=== PATIENT | female | born 1980 | race Caucasian/White ===

== ENCOUNTER 2017-01-11 18:25 | Emergency (ER) | payer BC ==
[~2017-01-11] VITALS: Ht 157.5 cm; Wt 49.9 kg
--- NOTE | 2017-01-11 18:39 | NUR ---
PT REC'D TO ER C/O ABD FOR 1 HOUR SHARP UPPER QUAD. HAS HX OF ULCERS . TOOK A PEPCID BEFORE SHE CAME TO THE ER. PAIN 03/18 , [facility] SENT TO [facility] BY ER PROVIDER.
--- NOTE | 2017-01-11 18:56 | NUR ---
IV STARTED 20G RT AC LABS DRAWN SENT TO LAB IV FLUIDS GIVEN PER MD ORDER
[2017-01-11 18:58] LABS: BASOPHILS # (AUTO) 0.2 /CMM (0.0-0.2); BASOPHILS % (AUTO) 2.9 % (0.0-2.0); EOSINOPHILS # (AUTO) 0.1 /CMM (0.0-0.7); EOSINOPHILS % (AUTO) 1.3 % (0.0-6.0); HEMATOCRIT 36 % (33-45); HEMOGLOBIN 12.1 g/dL (11.5-14.8); LYMPHOCYTES % (AUTO) 30.1 % (20.0-44.0); MEAN CORPUSCULAR HEMOGLOBIN 31 PG (26.0-33.0); MEAN CORPUSCULAR HGB CONC 34 g/dl (31.0-36.0); MEAN CORPUSCULAR VOLUME 91 fL (82-100); MONOCYTES # (AUTO) 0.6 /CMM (0.1-1.30); MONOCYTES % (AUTO) 8.4 % (2.0-12.0); NEUTROPHILS # (AUTO) 3.7 /CMM (1.8-8.9); NEUTROPHILS % (AUTO) 57.3 % (43.0-81.0); PLATELET COUNT (AUTO) 301 /CMM (150-450); RDW COEFFICIENT OF VARIATION 11.9 (11.5-15.0); RED BLOOD CELL COUNT(AUTO) 3.94 MIL/uL (4.0-5.2); WHITE BLOOD COUNT (AUTO) 6.6 K/uL (4.3-11.0)
[2017-01-11 19:00] LABS: APPEARANCE,URINE Clear (CLEAR); BILIRUBIN,URINE Negative (NEGATIVE); BLOOD, URINE Moderate Ery/uL (NEGATIVE); COLOR,URINE Yellow (YELLOW); KETONES,URINE Negative (NEGATIVE); LEUKOCYTE ESTERASE ,URINE Negative (NEGATIVE); NITRITE, URINE Negative (NEGATIVE); PREGNANCY TEST URINE QUAL NEGATIVE (NEGATIVE); PROTEIN,URINE Negative (NEGATIVE); UGLUCOSE Negative (NEGATIVE); UROBILINOGEN,URINE 0.2 EU/dL (0.2)
[2017-01-11] MEDS ORDERED: ONDANSETRON HCL/PF 4 MG/2 ML VIAL IVP ONE (19:00)
[2017-01-11] MEDS ORDERED: MORPHINE SULFATE INJ 2 MG/ML DISP.SYRIN IV ONE (19:00)
[2017-01-11] MEDS ORDERED: PANTOPRAZOLE 40 MG VIAL IV ONE (19:00)
[2017-01-11] MEDS ORDERED: IV NS 0.9% 1,000 ML BAG IV ONE (19:00)
--- NOTE | 2017-01-11 19:00 | NUR ---
MAUREEN TROYVNE PER MD ORDER AWAITING EVALUATION BY ER PROVIDER.
[2017-01-11] MEDS ORDERED: ONDANSETRON HCL/PF 4 MG/2 ML VIAL ONE (19:01)
[2017-01-11] MEDS ORDERED: MORPHINE SULFATE INJ 4 MG/ML DISP.SYRIN ONE (19:02)
[2017-01-11] MEDS ORDERED: PANTOPRAZOLE 40 MG VIAL ONE (19:02)
--- NOTE | 2017-01-11 19:10 | NUR ---
REPORT GIVEN TO PM SHIFT
[2017-01-11 19:20] LABS: BILIRUBIN,TOTAL 0.2 mg/dL (0.2-1.0); CALCIUM, SERUM 8.7 mg/dL (8.5-10.1); CREATININE 0.7 mg/dL (0.6-1.3); POTASSIUM 3.9 mmol/L (3.5-5.1); TOTAL PROTEIN, SERUM 7.1 g/dL (6.4-8.2)
[2017-01-11 19:24] LABS: BACTERIA,URINE Moderate /HPF (None Seen); SQUAMOUS EPITHELIAL CELL,UR Moderate /HPF (None Seen); WBC,URINE 0-2 /HPF (0-3)
--- NOTE | 2017-01-11 19:26 | NUR ---
FOLLOWED UP WITH RADIOLOGY FOR ULTRASOUND, US TECH IS ON THE WAY
--- NOTE | 2017-01-11 19:39 | NUR ---
ONGOING ULTRASOUND AT BEDSIDE.
--- NOTE | 2017-01-11 20:53 | NUR ---
PATIENT TAKEN TO CT.
--- NOTE | 2017-01-11 21:05 | NUR ---
PATIENT BACK FROM CT.
--- NOTE | 2017-01-11 22:21 | NUR ---
IV removed. Catheter intact and site benign. Pressure and 4x4 applied to site. No bleeding noted. Patient discharged to home in stable condition. Written and verbal after care instructions given. Patient verbalizes understanding of instruction. Patient is ambulatory with steady gait, no further complaints.
[2017-01-11] MEDS ORDERED: TRAMADOL HCL 50 MG TABLET ONE (22:23)
[2017-01-11 22:27] VITALS: BP 110/62
[2017-01-11] MEDS ORDERED: TRAMADOL HCL 50 MG TABLET PO ONE (22:30)
== END 2017-01-11 22:27 | disposition home or self-care (01) ==
LOC: ER 18:26
DX: K27.3 Acute peptic ulcer, site unspecified, without hemorrhage or perforation (principal); R31.29 Other microscopic hematuria; K21.9 Gastro-esophageal reflux disease without esophagitis; Z87.11 Personal history of peptic ulcer disease; Z88.0 Allergy status to penicillin
CPT/HCPCS: 36415; 72128-TC; 76705-TC; 80048-TC; 80076-TC; 81000-TC; 83605-TC; 83690-TC; 84703-TC; 85025-TC; 87086-TC; A4606; C9113; J2270; J2405; J7030; Z7610

== ENCOUNTER 2017-06-13 23:57 | Emergency (ER) | payer BC ==
[~2017-06-13] VITALS: Ht 154.9 cm; Wt 48.1 kg
--- NOTE | 2017-06-14 01:50 | NUR ---
PT BIB FAMILY, PT A/OX4 BREATHING EFFORTLESSLY ON ROOM AIR, PT STATES SHE STARTED HVAING VERYBAD NAUSEA WITH DIARRHEA 24 HOURS AGO, PT DENEIS VOMITING, URINE COLLECTED AND SENT TO LAB, IV PLACED LABS DRAWN, PT ON MONITOR, PT FAMILY AT BEDSIDE MD MADE AWARE WILL CONTINUE TO MONITOR.
[2017-06-14 01:54] LABS: BILIRUBIN,URINE NEGATIVE (NEGATIVE); BLOOD, URINE 3+ Ery/uL (NEGATIVE); COLOR,URINE YELLOW (YELLOW); KETONES,URINE 2+ (NEGATIVE); LEUKOCYTE ESTERASE ,URINE NEGATIVE (NEGATIVE); NITRITE, URINE NEGATIVE (NEGATIVE); PROTEIN,URINE NEGATIVE (NEGATIVE); UGLUCOSE NEGATIVE (NEGATIVE); UROBILINOGEN,URINE 0.2 EU/dL (0.2)
[2017-06-14 01:55] LABS: APPEARANCE,URINE HAZY (CLEAR)
[2017-06-14] MEDS ORDERED: ONDANSETRON HCL/PF 4 MG/2 ML VIAL IVP ONE (02:00)
[2017-06-14] MEDS ORDERED: IV NS 0.9% 1,000 ML BAG IV ONE (02:00)
[2017-06-14 02:03] LABS: BACTERIA,URINE 1+ /HPF (None Seen); RBC,URINE 21-50 /HPF (0-2); WBC,URINE 0-2 /HPF (0-3); YEAST,URINE Few /HPF (None Seen)
[2017-06-14] MEDS ORDERED: ONDANSETRON HCL/PF 4 MG/2 ML VIAL ONE (02:03)
[2017-06-14 02:04] LABS: MUCUS,URINE Few /LPF (None Seen); SQUAMOUS EPITHELIAL CELL,UR Moderate /HPF (None Seen)
[2017-06-14 02:09] LABS: BASOPHILS % (AUTO) 0.3 % (0.0-2.0); EOSINOPHILS % (AUTO) 0.2 % (0.0-6.0); HEMATOCRIT 39 % (33-45); HEMOGLOBIN 13.8 g/dL (11.5-14.8); LYMPHOCYTES # (AUTO) 0.4 /CMM (0.8-4.8); LYMPHOCYTES % (AUTO) 8.5 % (20.0-44.0); MEAN CORPUSCULAR HEMOGLOBIN 32 PG (26.0-33.0); MEAN CORPUSCULAR HGB CONC 35 g/dl (31.0-36.0); MEAN CORPUSCULAR VOLUME 90 fL (82-100); MONOCYTES # (AUTO) 0.4 /CMM (0.1-1.30); MONOCYTES % (AUTO) 7.5 % (2.0-12.0); NEUTROPHILS # (AUTO) 4.4 /CMM (1.8-8.9); NEUTROPHILS % (AUTO) 83.5 % (43.0-81.0); PLATELET COUNT (AUTO) 223 /CMM (150-450); RDW COEFFICIENT OF VARIATION 12.5 (11.5-15.0); RED BLOOD CELL COUNT(AUTO) 4.36 MIL/uL (4.0-5.2); WHITE BLOOD COUNT (AUTO) 5.2 K/uL (4.3-11.0)
[2017-06-14 02:18] LABS: CREATININE 0.9 mg/dL (0.6-1.3); POTASSIUM 3.5 mmol/L (3.5-5.1)
[2017-06-14 02:24] LABS: ALBUMIN 4.1 g/dL (3.4-5.0); BILIRUBIN,DIRECT 0.1 mg/dL (0.0-0.2); BILIRUBIN,TOTAL 0.5 mg/dL (0.2-1.0); TOTAL PROTEIN, SERUM 8.3 g/dL (6.4-8.2)
[2017-06-14] MEDS ORDERED: DICYCLOMINE HCL INJ 20 MG/2 ML AMPUL IM ONE ×2 (03:27→03:30)
[2017-06-14] MEDS ORDERED: METOCLOPRAMIDE HCL 10 MG/2 ML VIAL ONE (03:40)
[2017-06-14] MEDS ORDERED: METOCLOPRAMIDE HCL 10 MG/2 ML VIAL IV ONE (04:00)
--- NOTE | 2017-06-14 04:18 | NUR ---
PT IN BED AND STATES SHE IS FEELING BETTER WITH THE NEW MEDICINE, PT FAMILY AT BEDSIDE, VSS WILL CONTINUE TO MONITOR.
[2017-06-14 06:27] VITALS: BP 110/64
== END 2017-06-14 06:28 | disposition home or self-care (01) ==
LOC: ER 06-14
DX: K52.9 Noninfective gastroenteritis and colitis, unspecified (principal); K21.9 Gastro-esophageal reflux disease without esophagitis; F10.10 Alcohol abuse, uncomplicated; F17.200 Nicotine dependence, unspecified, uncomplicated; Z88.1 Allergy status to other antibiotic agents
CPT/HCPCS: 36415; 74176; 80048; 80076; 81001; 83690; 84703; 85025; 96361; 96372; 96374; 96375; 99285; A4606; J0500; J2405; J2765; Z7610; 81000-TC